=== PATIENT | female | born 1925 | race Caucasian/White ===

== ENCOUNTER → 2016-04-18 | Outpatient (CLI) | payer MEDICARE, MEDICAID ==
[2016-04-18 12:07] LABS: PROTHROMBIN TIME 33.8 SEC (11.4-15.4)
== END ==
LOC: OD 10:54
PROVIDERS: ATTEND Nurse Practitioner
DX: I48.91 Unspecified atrial fibrillation (principal); Z79.01 Long term (current) use of anticoagulants
CPT/HCPCS: 36415; 85610

== ENCOUNTER → 2016-04-23 | Outpatient (CLI) | payer MEDICARE, MEDICAID ==
[2016-04-23 17:53] LABS: ABSOLUTE BASOPHILS # (AUTO) 0.1 10^3/uL (0.0-0.2); ABSOLUTE EOSINOPHILS # (AUTO) 0.3 10^3/uL (0.0-0.6); ABSOLUTE LYMPHOCYTES (AUTO) 1.2 10^3/uL (0.5-4.7); ABSOLUTE MONOCYTES (AUTO) 0.5 10^3/uL (0.1-1.4); ABSOLUTE NEUT (AUTO) 4.8 10^3/uL (1.7-8.2); BASOPHILS % (AUTO) 0.8 % (0-2); EOSINOPHILS % (AUTO) 3.8 % (0-6); HEMATOCRIT 30.4 % (36.0-47.0); HEMOGLOBIN 9.5 g/dL (12.0-15.5); HGB HCT DIFFERENCE -1.9; LYMPHOCYTES % (AUTO) 17.7 % (13-45); MEAN CORPUSCULAR HEMOGLOBIN 28.9 pg (27.0-33.4); MEAN CORPUSCULAR HGB CONC 31.2 g/dL (32.0-36.0); MEAN CORPUSCULAR VOLUME 93 fl (80-97); MONOCYTES % (AUTO) 7.5 % (3-13); RED BLOOD COUNT 3.28 10^6/uL (3.72-5.28); RED CELL DISTRIBUTION WIDTH 15.8 % (11.5-14.0); SEGMENTED NEUTROPHILS % (AUTO) 70.2 % (42-78); WHITE BLOOD COUNT 6.9 10^3/uL (4.0-10.5)
[2016-04-23 18:28] LABS: PROTHROMBIN TIME 33.3 SEC (11.4-15.4)
== END ==
LOC: OD 16:52
PROVIDERS: ATTEND Nurse Practitioner
DX: K92.1 Melena (principal)
CPT/HCPCS: 36415; 82272; 85025; 85610

== ENCOUNTER 2016-04-26 21:28 | Emergency (ER) | payer MEDICARE, MEDICAID ==
--- NOTE | 2016-04-26 23:46 | ER Document Report ---
ED Extremity Problem, Lower - General Mode of Arrival: Ambulatory Information source: Patient TRAVEL OUTSIDE OF THE [place] IN LAST 30 DAYS: No - HPI Patient complains to provider of: Pain Location: Leg Associated symptoms: Other - see above <NICK GÓMEZ - Last Filed: 04/27/16 00:09> <KIMRICHARD JOÃO - Last Filed: 04/27/16 03:29> - General Chief Complaint: Leg Pain Stated Complaint: LEFT LEG PAIN Notes: Patient is an 89 year old female, with a past medical history including A-fib and rheumatoid arthritis, who presents to the emergency department complaining of left leg pain. Patient reports that the pain came on suddenly like a stab to the top of her left thigh and travelled down her leg to her foot. Patient states that at the time she was getting up to go to the bathroom. Patient reports that she feels fine now, complaining only that she is tired. Patient denies back pain. (NICK GÓMEZ) - Related Data Allergies/Adverse Reactions: No Known Allergies Allergy (Unverified 04/27/16 00:35) Past Medical History - General Information source: Patient - Social History Smoking Status: Unknown if Ever Smoked Family History: Reviewed & Not Pertinent - Past Medical History Cardiac Medical History: Reports: Hx Atrial Fibrillation Musculoskeltal Medical History: Reports Hx Arthritis - RA Past Surgical History: Reports: Hx Pacemaker <NICK GÓMEZ - Last Filed: 04/27/16 00:09> Review of Systems - Review of Systems Constitutional: No symptoms reported EENT: No symptoms reported Cardiovascular: No symptoms reported Respiratory: No symptoms reported Gastrointestinal: No symptoms reported Genitourinary: No symptoms reported Female Genitourinary: No symptoms reported Musculoskeletal: See HPI, Other - Left leg pain Skin: No symptoms reported Hematologic/Lymphatic: No symptoms reported Neurological/Psychological: No symptoms reported -: Yes All other systems reviewed and negative <NICK GÓMEZ - Last Filed: 04/27/16 00:09> Physical Exam - Vital signs Interpretation: Normal - General General appearance: Appears well, Alert - HEENT Head: Normocephalic, Atraumatic - Respiratory Respiratory status: No respiratory distress Chest status: Nontender Breath sounds: Normal Chest palpation: Normal - Cardiovascular Rhythm: Regular Heart sounds: Normal auscultation Murmur: No Pulses: Normal: Radial, Femoral, Dorsalis pedis - Abdominal Inspection: Normal Distension: No distension Bowel sounds: Normal Tenderness: Nontender Organomegaly: No organomegaly - Extremities General upper extremity: Normal inspection, Nontender, Normal ROM, Normal strength General lower extremity: Normal inspection, Nontender, Normal ROM, Normal strength - Neurological Neuro grossly intact: Yes Cognition: Normal Orientation: AAOx4 Ana Coma Scale Eye Opening: Spontaneous Ana Coma Scale Verbal: Oriented Ana Coma Scale Motor: Obeys Commands Ana Coma Scale Total: 15 Speech: Normal Motor strength normal: LUE, RUE, LLE, RLE Sensory: Normal - Psychological Associated symptoms: Normal affect, Normal mood - Skin Skin Temperature: Warm Skin Moisture: Dry Skin Color: Normal <NICK GÓMEZ - Last Filed: 04/27/16 00:09> Course - Laboratory Result Diagrams: 04/26/16 23:42 04/26/16 23:42 <NICK GÓMEZ - Last Filed: 04/27/16 00:09> - Laboratory Result Diagrams: 04/26/16 23:42 04/26/16 23:42 <RICHARD ALVAREZ - Last Filed: 04/27/16 03:29> - Re-evaluation Re-evalutation: 04/27/16 Patient is an 89-year-old female who comes in with leg pain. No acute findings on physical exam. Patient is neurovascularly intact. Patient has anemia. Patient is being worked up for this by her primary care doctor and has a colonoscopy scheduled for Friday. Vitals are stable. Patient is having no bleeding tonight. Patient also with asymptomatic bacteriuria. Patient states that she does not want to take antibiotics unnecessarily. Culture will be sent and her primary doctor can follow-up on this. Patient has no complaints at this time. She'll be discharged home and return if any worsening or concerning symptoms. Stable at time of discharge. (RICHARD ALVAREZ) - Vital Signs Vital signs: Temp Pulse Resp BP Pulse Ox 97.9 F 66 15 140/62 H 98 04/27/16 01:40 04/27/16 01:40 04/27/16 01:40 04/27/16 01:40 04/27/16 01:40 (RICHARD ALVAREZ) - Laboratory Laboratory results interpreted by me: 04/26/16 04/26/16 04/26/16 23:42 23:42 23:42 RBC 2.95 L Hgb 8.9 L Hct 26.9 L RDW 15.9 H PT 19.9 H Total Protein 5.9 L Urine Nitrite Ur Leukocyte Esterase 04/26/16 23:42 RBC Hgb Hct RDW PT Total Protein Urine Nitrite POSITIVE H Ur Leukocyte Esterase LARGE H (RICHARD ALVAREZ) Discharge <NICK GÓMEZ - Last Filed: 04/27/16 00:09> <RICHARD ALVAREZ - Last Filed: 04/27/16 03:29> - Discharge Clinical Impression: Bacteriuria, asymptomatic Anemia Qualifiers: Anemia type: unspecified type Qualified Code(s): D64.9 - Anemia, unspecified Leg pain Qualifiers: Laterality: left Qualified Code(s): M79.605 - Pain in left leg Condition: Stable Disposition: HOME, SELF-CARE Instructions: Anemia ([facility]) Additional Instructions: Please follow-up for your colonoscopy as scheduled. Please follow-up with your doctor regarding your anemia. A urine culture has been sent. Referrals: AROLDO FOSTER FLY MAKER [Primary Care Provider] - 04/29/16 Scribe Attestation: 04/27/16 03:29 I personally performed the services described in the documentation, reviewed and edited the documentation which was dictated to the scribe in my presence, and it accurately records my words and actions. (RICHARD ALVAREZ) Scribe Documentation - Scribe Written by Taisha:: Taisha Harvey, 04/27/16, 0012 acting as scribe for :: Kim <NICK GÓMEZ - Last Filed: 04/27/16 00:09>
[2016-04-27 00:08] LABS: ABSOLUTE BASOPHILS # (AUTO) 0.1 10^3/uL (0.0-0.2); ABSOLUTE EOSINOPHILS # (AUTO) 0.2 10^3/uL (0.0-0.6); ABSOLUTE LYMPHOCYTES (AUTO) 0.7 10^3/uL (0.5-4.7); ABSOLUTE MONOCYTES (AUTO) 0.6 10^3/uL (0.1-1.4); ABSOLUTE NEUT (AUTO) 3.7 10^3/uL (1.7-8.2); EOSINOPHILS % (AUTO) 3.5 % (0-6); HEMATOCRIT 26.9 % (36.0-47.0); HEMOGLOBIN 8.9 g/dL (12.0-15.5); HGB HCT DIFFERENCE -0.2; LYMPHOCYTES % (AUTO) 13.8 % (13-45); MEAN CORPUSCULAR HEMOGLOBIN 30.1 pg (27.0-33.4); MEAN CORPUSCULAR VOLUME 91 fl (80-97); MONOCYTES % (AUTO) 11.1 % (3-13); RED BLOOD COUNT 2.95 10^6/uL (3.72-5.28); RED CELL DISTRIBUTION WIDTH 15.9 % (11.5-14.0); SEGMENTED NEUTROPHILS % (AUTO) 70.6 % (42-78); WHITE BLOOD COUNT 5.2 10^3/uL (4.0-10.5)
[2016-04-27 00:09] LABS: APPEARANCE,URINE SLIGHTLY-CLOUDY; BILIRUBIN,URINE NEGATIVE (NEGATIVE); GLUCOSE, URINE NEGATIVE (NEGATIVE); KETONES,URINE NEGATIVE (NEGATIVE); LEUKOCYTE ESTERASE,URINE LARGE (NEGATIVE); NITRITE,URINE POSITIVE (NEGATIVE); PROTEIN,URINE NEGATIVE (NEGATIVE); URINE SPECIFIC GRAVITY 1.008; UROBILINOGEN,URINE NEGATIVE mg/dL (<2.0)
[2016-04-27 00:11] LABS: PROTHROMBIN TIME 19.9 SEC (11.4-15.4)
[2016-04-27 00:12] LABS: ALBUMIN 3.6 g/dL (3.5-5.0); BILIRUBIN,TOTAL 0.7 mg/dL (0.2-1.3); BLOOD UREA NITROGEN 19 mg/dL (7-20); CARBON DIOXIDE 30 mmol/L (22-30); CREATININE RESULT 0.76 mg/dL (0.52-1.25); TOTAL PROTEIN 5.9 g/dL (6.3-8.2)
[2016-04-27 00:15] LABS: ALANINE AMINOTRANSFERASE 32 U/L (9-52); ALKALINE PHOSPHATASE 65 U/L (38-126); ANION GAP 9 (5-19); ASPARTATE AMINO TRANSFERASE 21 U/L (14-36); CALCIUM 8.9 mg/dL (8.4-10.2); CHLORIDE 100 mmol/L (98-107); CREATINE KINASE 55 U/L (30-135); GLUCOSE 99 mg/dL (75-110); POTASSIUM 4.1 mmol/L (3.6-5.0); SODIUM 138.7 mmol/L (137-145)
[2016-04-27 00:24] LABS: CREATINE KINASE MB 1.19 ng/mL (<4.55)
[2016-04-27 00:25] LABS: TROPONIN I < 0.012 ng/mL
[2016-04-27 02:15] VITALS: BP 140/62
--- NOTE | 2016-04-27 11:01 | EKG REPORT ---
SEVERITY:- ABNORMAL ECG - ATRIAL-PACED COMPLEXES VENTRICULAR PREMATURE COMPLEX RIGHT BUNDLE BRANCH BLOCK : Confirmed by: Sampson Molina MD 27-Apr-2016 11:01:03
== END 2016-04-27 01:45 | disposition home or self-care (01) ==
LOC: ER 21:28
DX: R82.71 Bacteriuria (principal); D64.9 Anemia, unspecified; M79.605 Pain in left leg; I48.91 Unspecified atrial fibrillation; Z95.0 Presence of cardiac pacemaker
CPT/HCPCS: 36415; 80053; 81001; 82550; 82553; 82962; 83605; 84484; 85025; 85610; 87040; 87086; 87088; 87186; 93005; 93010; 99284

== ENCOUNTER → 2016-06-07 | Outpatient (CLI) | payer MEDICARE, MEDICAID | LOC: WI 11:10 | PROVIDERS: ATTEND Nurse Practitioner | DX: Z12.31 Encounter for screening mammogram for malignant neoplasm of breast (principal) | CPT/HCPCS: 77063; G0202; 77067 ==